=== PATIENT | female | born 1995 | race Caucasian/White ===

== ENCOUNTER 2017-08-06 19:35 | Observation (INO) | payer OTHER ==
[~2017-08-06] VITALS: Ht 167.6 cm; Wt 83.0 kg
[~2017-08-06 19:35] MED LIST: FERR325E14 PO; FOLI1TAB19 PO; PREN-385 PO
[2017-08-06 19:49] VITALS: BP 129/75
[2017-08-06] MEDS ORDERED: [UNRECOGNIZED DRUG - CODE] PO (19:56)
[2017-08-06] MEDS ORDERED: PREN-546 PO (19:56)
== END 2017-08-06 21:00 | disposition home or self-care (01) ==
LOC: MFCC 19:35
PROVIDERS: ADMIT Obstetrics & Gynecology; ATTEND Obstetrics & Gynecology
DX: O36.8130 Decreased fetal movements, third trimester, not applicable or unspecified (principal); Z3A.39 39 weeks gestation of pregnancy
CPT/HCPCS: G0378

== ENCOUNTER 2017-08-09 05:47 | Inpatient (IN) | payer OTHER ==
[~2017-08-09] VITALS: Ht 167.6 cm; Wt 83.0 kg
[~2017-08-09 05:47] MED LIST changes: -FOLI1TAB19 PO
[2017-08-09] MEDS ORDERED: LACTATED RINGERS 500 ML IV ONE (06:15)
[2017-08-09] MEDS ORDERED: PROMETHAZINE 25 MG/ML VIAL IVP PRN (06:15)
[2017-08-09] MEDS ORDERED: NALBUPHINE HYDROCHLORIDE 10 MG/ML VIAL IVP PRN (06:15)
[2017-08-09] MEDS ORDERED: OXYTOCIN 20 UNITS in LACTATED RINGERS 1,000 ML IV SCH (06:20)
[2017-08-09 06:28] LABS: BASOPHILS % (AUTO) 0.4 % (0.0-2.0); EOSINOPHILS # (AUTO) 0.1 K/uL (0-0.4); EOSINOPHILS % (AUTO) 0.8 % (0.0-4.0); HEMATOCRIT 35.4 % (36-48); HEMOGLOBIN 11.8 g/dL (12.0-16.0); LYMPHOCYTES # (AUTO) 1.7 K/uL (2.5-16.5); LYMPHOCYTES % (AUTO) 20.8 % (20.5-51.1); MEAN CORPUSCULAR HEMOGLOBIN 31 pg (27-31); MEAN CORPUSCULAR HGB CONC 33 g/dL (33-37); MEAN CORPUSCULAR VOLUME 92.8 fL (80-94); MONOCYTES # (AUTO) 0.7 K/uL (0.8-1.0); MONOCYTES % (AUTO) 8.9 % (1.7-9.3); NEUTROPHILS # (AUTO) 5.7 K/uL (1.8-7.7); NEUTROPHILS % (AUTO) 69.1 % (42.2-75.2); PLATELET COUNT (AUTO) 192 K/uL (140-450); RED BLOOD CELL COUNT(AUTO) 3.81 MIL/uL (4.20-5.40); WHITE BLOOD COUNT (AUTO) 8.2 K/uL (4.8-10.8)
[2017-08-09 06:31] LABS: APPEARANCE,URINE CLEAR (CLEAR); BILIRUBIN,URINE NEGATIVE (NEGATIVE); BLOOD, URINE TRACE-L (NEGATIVE); COLOR,URINE YELLOW (YELLOW); LEUKOCYTE ESTERASE ,URINE NEGATIVE (NEGATIVE); NITRITE, URINE NEGATIVE (NEGATIVE); UGLUCOSE NEGATIVE (NEGATIVE)
[2017-08-09] MEDS: LACTATED RINGERS 1,000 ML IV SCH ×2 (06:42→09:55)
[2017-08-09] MEDS ORDERED: NALBUPHINE HYDROCHLORIDE 10 MG/ML VIAL ONE (06:47)
[2017-08-09] MEDS ORDERED: PROMETHAZINE 25 MG/ML VIAL ONE (06:48)
[2017-08-09 07:21] VITALS: BP 111/72
[2017-08-09 08:04] LABS: RBC,URINE 0-5 (RARE) /HPF (0-5); WBC,URINE 0-5 (RARE) /HPF (0-5)
[2017-08-09] MEDS ORDERED: BUPIVACAINE 0.125%/NS PREMIX 250 ML EPI SCH (09:38)
--- NOTE | 2017-08-09 10:35 | NUR ---
PATIENT HAS BEEN SCREENED AND CATEGORIZED LOW NUTRITION RISK. PATIENT WILL BE SEEN WITHIN 7 DAYS OF ADMISSION. 08/15/[address]
[2017-08-09] MEDS ORDERED: OXYTOCIN 10 UNITS/ML VIAL ONE (13:21)
[2017-08-09] MEDS ORDERED: METHYLERGONOVINE 0.2 MG/ML AMP ONE (14:46)
[2017-08-09] MEDS ORDERED: CARBOPROST 250 MCG/ML AMP IM ONE (14:47)
[2017-08-09] MEDS ORDERED: OXYTOCIN 10 UNITS/ML VIAL IM PRN (15:10)
[2017-08-09] MEDS ORDERED: MEASLES, MUMPS, AND RUBELLA 1 VIAL SQVAC PRN (15:10)
[2017-08-09] MEDS ORDERED: METHYLERGONOVINE 0.2 MG/ML AMP IM PRN (15:10)
[2017-08-10 06:53] LABS: HEMATOCRIT 28.9 % (36-48); HEMOGLOBIN 9.7 g/dL (12.0-16.0)
[2017-08-10] MEDS ORDERED: DOCUSATE SODIUM 100 MG GELCAP PO SCH (19:00)
[2017-08-10] MEDS: IBUPROFEN 600 MG TAB PO PRN (22:31)
[2017-08-11] MEDS: IBUPROFEN 600 MG TAB PO PRN (06:23)
[2017-08-11] MEDS ORDERED: DOCUSATE SODIUM 100 MG GELCAP PO SCH (09:00)
[2017-08-11] MEDS ORDERED: IBUP-2213 PO (09:44)
== END 2017-08-11 11:30 | disposition home or self-care (01) | DRG 560 ==
LOC: MLD 05:47 → MFCC 17:43
PROVIDERS: ADMIT Obstetrics & Gynecology; ATTEND Obstetrics & Gynecology
PROC: 10E0XZZ Delivery of Products of Conception, External Approach (ICD-10-PCS; principal; 2017-08-09)
PROC: 3E0R3BZ Introduction of Anesthetic Agent into Spinal Canal, Percutaneous Approach (ICD-10-PCS; 2017-08-09)
PROC: 00HU33Z Insertion of Infusion Device into Spinal Canal, Percutaneous Approach (ICD-10-PCS; 2017-08-09)
DX: O80 Encounter for full-term uncomplicated delivery (principal); Z37.0 Single live birth; Z3A.39 39 weeks gestation of pregnancy; Z28.21 Immunization not carried out because of patient refusal
CPT/HCPCS: 36415; 51702; 59409; 81001; 85018; 85025; 86592; 86886; 86900; 86901; J2210; J2300; J2550; J2590; J3490; J7120